=== PATIENT | female | born 1995 | race Caucasian/White ===

== ENCOUNTER 2021-04-07 05:17 | Inpatient (IN) | payer MEDICAID ==
[~2021-04-07 05:17] MED LIST: Albuterol 0.083% 2.5 MG/3 ML Neb Soln NEB PRN; HYDROmorphone 1 MG/ML Syringe IVPUSH PRN; Metoclopramide 10 MG/2 ML SDV IVPUSH PRN; Morphine 4 MG/ML VIAL IVPUSH PRN; Nalbuphine 10 MG/1 ML Vial IVPUSH PRN; Naloxone 0.4 MG/ML Syringe IVPUSH PRN; Ondansetron 4 MG/2 ML SDV IVPUSH PRN; diphenhydrAMINE 50 MG/ML SDV IVPUSH PRN; fentaNYL 100 MCG/2 ML SDV IVPUSH PRN
[2021-04-07] MEDS ORDERED: Citric Acid/Sodium Citrate Solution 30 ML Cup PO ONE (06:44)
[2021-04-07] MEDS ORDERED: Sodium Chloride 0.9% 2.5 ML Syringe FLUSH PRN (06:44)
[2021-04-07] MEDS ORDERED: Sodium Chloride 0.9% 10 ML Syringe FLUSH PRN (06:44)
[2021-04-07] MEDS ORDERED: Sodium Chloride 0.9% 20 ML SDV IV PRN (06:44)
[2021-04-07] MEDS: Lactated Ringers 1,000 ML IV SCH ×2 (06:45→07:20)
[2021-04-07] MEDS ORDERED: Oxytocin/0.9 % Sodium Chloride 30 UNIT/500 ML BAG IV SCH ×2 (06:45→09:00)
[2021-04-07] MEDS ORDERED: Morphine PF 10 MG/10 ML SDV ONE (07:03)
[2021-04-07] MEDS ORDERED: fentaNYL 100 MCG/2 ML SDV ONE (07:03)
[2021-04-07] MEDS ORDERED: Oxytocin 10 Units/1 ML SDV ONE ×3 (07:03)
[2021-04-07] MEDS ORDERED: Ondansetron 4 MG/2 ML SDV ONE ×2 (07:03)
[2021-04-07] MEDS ORDERED: Lidocaine 2% 100 MG/5 ML Syringe ONE (07:04)
[2021-04-07] MEDS ORDERED: Ropivacaine 0.5% 5 MG/ML 30 ML SDV ONE (07:29)
[2021-04-07] MEDS ORDERED: ceFAZolin 1 GM Vial ONE ×2 (07:31)
[2021-04-07] MEDS ORDERED: Octyl 2-Cyanoacrylate 1 Tube ONE (07:46)
[2021-04-07] MEDS ORDERED: Oxytocin 10 Units/1 ML SDV IM PRN (08:48)
[2021-04-07] MEDS ORDERED: Bisacodyl 10 MG Supp RECTAL PRN (08:48)
[2021-04-07] MEDS ORDERED: Tranexamic Acid 1,000 MG in Sodium Chloride 0.9% 100 ML IV PRN (08:48)
[2021-04-07] MEDS ORDERED: diphenhydrAMINE 50 MG/ML SDV IVPUSH PRN (08:48)
[2021-04-07] MEDS ORDERED: oxyCODONE 5 MG Tab PO PRN (08:48)
[2021-04-07] MEDS ORDERED: Ondansetron 4 MG/2 ML SDV IVPUSH PRN (08:48)
[2021-04-07] MEDS ORDERED: Acetaminophen 500 MG Tab PO PRN (08:48)
[2021-04-07] MEDS ORDERED: Lanolin 100% Cream 7 GM Tube TOP PRN (08:48)
[2021-04-07] MEDS ORDERED: Lactated Ringers 1,000 ML IV SCH (09:00)
[2021-04-07] MEDS: Docusate Sodium 100 MG Cap PO SCH ×2 (10:23→20:48)
[2021-04-07] MEDS ORDERED: Acetaminophen 1,000 MG in Premix Bag 1 BAG IV ONE (11:09)
[2021-04-07] MEDS: Enoxaparin 40 MG/0.4 ML Syringe SUBCUT SCH (14:40)
[2021-04-07] MEDS: Ibuprofen 800 MG Tab PO PRN (19:00)
[2021-04-08] MEDS ORDERED: Ketorolac 30 MG/ML SDV IVPUSH PRN (02:18)
[2021-04-08] MEDS: Ibuprofen 800 MG Tab PO PRN ×2 (10:39→20:23)
[2021-04-08] MEDS: Docusate Sodium 100 MG Cap PO SCH ×2 (10:40→20:23)
[2021-04-08] MEDS: Enoxaparin 40 MG/0.4 ML Syringe SUBCUT SCH (15:42)
[2021-04-08] MEDS ORDERED: Acetaminophen/oxyCODONE 325-5 MG Tab ONE (22:30)
[2021-04-08] MEDS: Acetaminophen/oxyCODONE 325-5 MG Tab PO PRN (22:33)
[2021-04-09] MEDS: Ibuprofen 800 MG Tab PO PRN (04:08)
[2021-04-09 08:47] VITALS: BP 114/61; PULSE 82
[2021-04-09] MEDS ORDERED: Acetaminophen/oxyCODONE 325-5 MG Tab ONE (10:54)
[2021-04-09] MEDS: Acetaminophen/oxyCODONE 325-5 MG Tab PO PRN (10:57)
[2021-04-09] MEDS: Docusate Sodium 100 MG Cap PO SCH (10:57)
== END 2021-04-09 13:42 | disposition home or self-care (01) | DRG 787 ==
LOC: MW.OB 05:17
PROVIDERS: ADMIT Obstetrics & Gynecology; ATTEND Obstetrics & Gynecology
PROC: 10D00Z1 Extraction of Products of Conception, Low, Open Approach (ICD-10-PCS; principal; 2021-04-07)
DX: O34.211 Maternal care for low transverse scar from previous cesarean delivery (principal); O99.12 Other diseases of the blood and blood-forming organs and certain disorders involving the immune mechanism complicating childbirth; D68.9 Coagulation defect, unspecified; O99.214 Obesity complicating childbirth; Z37.0 Single live birth; Z3A.39 39 weeks gestation of pregnancy
CPT/HCPCS: 01961; 36415; 59025; 64488; 82803; 85014; 85018; 85027; 86592; 86850; 86900; 86901; A9270-GY; J0131; J0690; J1650; J1790; J1885; J2274; J2370; J2405; J2590; J2795; J3010; J7120